=== PATIENT | male | born 1955 | race Caucasian/White ===

== ENCOUNTER 2019-12-16 14:16 | Emergency (ER) | payer BC ==
[2019-12-16] MEDS ORDERED: SODIUM CHLORIDE 0.9% (FLUSH) 10 ML SYG IV PRN (14:32)
[2019-12-16] MEDS ORDERED: SODIUM CHLORIDE 0.9% 1000ML 1,000 ML IVS PRN (14:32)
[2019-12-16] MEDS ORDERED: ONDANSETRON INJ 4 MG/2 ML VIAL ONE (15:05)
[2019-12-16] MEDS ORDERED: ONDANSETRON INJ 4 MG/2 ML VIAL IV ONE (15:17)
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
[2019-12-16] MEDS ORDERED: SODIUM CHLORIDE 0.9% 1000ML 1,000 ML IVS ONE (17:51)
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
[2019-12-16 18:02] VITALS: BP 132/87; TEMP 97.5; O2SAT 97
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
== END 2019-12-16 18:30 | disposition short-term general hospital (02) ==
LOC: ER 14:16
DX: S36.039A Unspecified laceration of spleen, initial encounter (principal); S22.32XA Fracture of one rib, left side, initial encounter for closed fracture; R07.9 Chest pain, unspecified; E11.9 Type 2 diabetes mellitus without complications; I10 Essential (primary) hypertension; J45.909 Unspecified asthma, uncomplicated; V28.2XXA Unspecified motorcycle rider injured in noncollision transport accident in nontraffic accident, initial encounter; Y92.410 Unspecified street and highway as the place of occurrence of the external cause; Z87.891 Personal history of nicotine dependence
CPT/HCPCS: 36415; 70450; 71045; 71260; 72125; 74178; 80053; 80320; 82550; 82553; 84484; 85025; 93005; 94760; J2405; J7030